=== PATIENT | female | born 1985 | race Caucasian/White ===

== ENCOUNTER 2016-09-03 05:29 | Day surgery (SDC) | payer OTHER ==
[2016-08-27 10:12] LABS: ABSOLUTE EOSINOPHILS # (AUTO) 0.1 10^3/uL (0.0-0.6); ABSOLUTE LYMPHOCYTES (AUTO) 1.8 10^3/uL (0.5-4.7); ABSOLUTE MONOCYTES (AUTO) 0.4 10^3/uL (0.1-1.4); ABSOLUTE NEUT (AUTO) 5.4 10^3/uL (1.7-8.2); BASOPHILS % (AUTO) 0.4 % (0-2); EOSINOPHILS % (AUTO) 1.6 % (0-6); HEMATOCRIT 45.7 % (36.0-47.0); HEMOGLOBIN 15.2 g/dL (12.0-15.5); HGB HCT DIFFERENCE -0.1; LYMPHOCYTES % (AUTO) 23.6 % (13-45); MEAN CORPUSCULAR HEMOGLOBIN 30.8 pg (27.0-33.4); MEAN CORPUSCULAR HGB CONC 33.3 g/dL (32.0-36.0); MEAN CORPUSCULAR VOLUME 92 fl (80-97); MONOCYTES % (AUTO) 5.1 % (3-13); RED BLOOD COUNT 4.95 10^6/uL (3.72-5.28); SEGMENTED NEUTROPHILS % (AUTO) 69.3 % (42-78); WHITE BLOOD COUNT 7.8 10^3/uL (4.0-10.5)
[2016-08-27 10:22] LABS: AMORPHOUS SEDIMENT,URINE TRACE /HPF; APPEARANCE,URINE CLOUDY; BILIRUBIN,URINE NEGATIVE (NEGATIVE); GLUCOSE, URINE NEGATIVE (NEGATIVE); KETONES,URINE NEGATIVE (NEGATIVE); LEUKOCYTE ESTERASE,URINE TRACE (NEGATIVE); NITRITE,URINE NEGATIVE (NEGATIVE); PROTEIN,URINE NEGATIVE (NEGATIVE); URINE SPECIFIC GRAVITY 1.017; UROBILINOGEN,URINE NEGATIVE mg/dL (<2.0)
[2016-08-27 10:39] LABS: ANION GAP 17 (5-19); BLOOD UREA NITROGEN 15 mg/dL (7-20); CARBON DIOXIDE 24 mmol/L (22-30); CHLORIDE 104 mmol/L (98-107); CREATININE RESULT 0.53 mg/dL (0.52-1.25); GLUCOSE 70 mg/dL (75-110); POTASSIUM 3.9 mmol/L (3.6-5.0); SODIUM 144.9 mmol/L (137-145)
--- NOTE | 2016-08-27 19:53 | EKG REPORT ---
SEVERITY:- NORMAL ECG - SINUS RHYTHM : Confirmed by: Wallace Juarez MD 27-Aug-2016 19:52:38
[~2016-09-03 05:29] MED LIST: LACTATED RINGERS 1000 ML IV PRN; LIDOCAINE 0.5% INJ-PF (5 MG/ML) 50 ML SDV SUBCUT PRN; VANCOMYCIN HCL 1,000 MG in DEXTROSE 5%-WATER 250 ML IV PRN
[2016-09-03] MEDS ORDERED: BUPIVACAINE HCL 0.25 % INJ/PF (2.5 MG/1 ML) 30 ML VIAL ONE (06:35)
[2016-09-03] MEDS ORDERED: EPINEPHRINE INJ/PF 1 MG/1 ML AMPULE ONE (06:35)
[2016-09-03] MEDS ORDERED: MIDAZOLAM 2 MG/2 ML INJ ONE (06:50)
[2016-09-03] MEDS ORDERED: KETOROLAC TROMETHAMINE 60 MG/2 ML SDV ONE (06:50)
[2016-09-03] MEDS ORDERED: FENTANYL CITRATE INJ/PF 250 MCG/5 ML AMPULE ONE (06:50)
[2016-09-03] MEDS ORDERED: ONDANSETRON HCL INJ/PF 4 MG/2 ML SDV ONE (06:50)
[2016-09-03] MEDS ORDERED: HYDROMORPHONE HCL INJ/PF 2 MG/ML AMPULE ONE ×2 (06:50→13:39)
[2016-09-03] MEDS ORDERED: PROPOFOL INJ 200 MG/20 ML VIAL IV ONE (06:51)
[2016-09-03] MEDS ORDERED: ACETAMINOPHEN 100 ML IV ONE (06:51)
[2016-09-03] MEDS ORDERED: PROMETHAZINE HCL INJ 25 MG/1 ML VIAL IV PRN (09:44)
[2016-09-03] MEDS ORDERED: MORPHINE SULFATE 10 MG/ML INJ IV PRN (09:44)
[2016-09-03] MEDS ORDERED: FENTANYL CITRATE INJ/PF 100 MCG/2 ML AMPUL IV PRN ×3 (09:44)
[2016-09-03] MEDS ORDERED: DIPHENHYDRAMINE HCL 50 MG/ML VIAL IV PRN (09:44)
[2016-09-03] MEDS ORDERED: MEPERIDINE HCL/PF INJ 25 MG/1 ML DISP.SYRIN IV PRN (09:44)
[2016-09-03] MEDS ORDERED: OXYCODONE-ACETAMINOPHEN 5-325 MG TABLET PO PRN ×2 (12:05)
--- NOTE | 2016-09-03 12:05 | PDOC DISCHARGE SUMMARY ---
Discharge Summary (SDC) - Discharge Final Diagnosis: Right shoulder instability Date of Surgery: 09/03/16 Discharge Date: 09/03/16 Condition: Good Treatment or Instructions: Patient is instructed to follow up in 10-14 days. Patient instructed to remove dressing in 4 days then can shower and apply Band- Aids as needed. Patient to wear sling for comfort but okay to remove for shower and pendulum exercises. Pendulum exercises are instructed to be done 3 times a day ideally with breakfast, lunch, dinners and showers. Patient instructed to call if there is any signs of redness or drainage fevers or chills. Discharge Diet: As Tolerated Respiratory Treatments at Home: Deep Breathing/Coughing Discharge Activity: No Lifting/Push/Pulling, Walk Frequently Home Care Assistance: None Needed Report the Following to Your Physician Immediately: Shortness of Breath, Vomiting, Increase in Pain, Fever over 101 Degrees, Unusual Bleeding, Redness, Warmth, Drainage-Yellow, Drainage-Green, Drainage-Foul Smelling, Numbness
[2016-09-03] MEDS: FENTANYL CITRATE INJ/PF 100 MCG/2 ML AMPUL ONE ×2 (12:13→12:27)
[2016-09-03] MEDS ORDERED: HYDROMORPHONE HCL INJ/PF 2 MG/ML AMPULE IV ONE (13:45)
[2016-09-03] MEDS ORDERED: ROCURONIUM BROMIDE INJ 50 MG/5 ML VIAL IV ONE (14:13)
[2016-09-03 15:46] VITALS: BP 107/58
--- NOTE | 2016-10-14 15:22 | OPERATIVE REPORT E ---
Operative Report NAME: DEMETRIS ROME : 1985 AGE: 30Y DATE OF SURGERY: ROOM: Patient is a 31-year-old female with 3 failed shoulder surgeries for instability; recent dislocations last several weeks. Discussed the risks and benefits of proceeding with a Latarjet procedure. Patient understood and agreed. PREOPERATIVE DIAGNOSIS: RIGHT SHOULDER INSTABILITY. POSTOPERATIVE DIAGNOSIS: RIGHT SHOULDER INSTABILITY. OPERATION: 1. Right shoulder arthroscopy. 2. Open Latarjet procedure. SURGEON: SAGE VÁZQUEZ M.D. ANESTHESIA: General. ESTIMATED BLOOD LOSS: 50 mL. COMPLICATIONS: None. IMPLANT USED: Two titanium screws by [employer]. DISPOSITION: Stable to PACU. DESCRIPTION OF PROCEDURE: The patient was brought to the operating room after receiving preoperative antibiotics. She was placed in a supine position where she was successfully intubated. She was then secured in a beach-chair position. We prepped and draped the right shoulder in a normal sterile surgical fashion. Time out was done identifying the right shoulder as the correct site. We used her previous portal sites and introduced the scope posteriorly. I established through same anterior portal sites she had and proceeded to place a cannula. Did arthroscopy showing flattening of her labrum and previous fixation. She had no bumper effect. There was a redundant capsule. At this point, we just did a simple debridement with a 4.0 mm shaver. At this point, we then removed the fluid from the shoulder and proceeded to do the open portion of the case. Deltopectoral approach was done to the shoulder. A #10 blade was used for the skin. Dissection was done with Metzenbaum scissors. The conjoint tendon was visualized and retracted with a self-containing retractor. I identified the coracoid and used an osteotome and place it under the coracoid. I then used a 90-degree 10mm saw to cut my coracoid 2 cm long. Released the tissue and then used Arthrex equipment guide to then place 2 drill holes into the coracoid. I exposed the anterior glenohumeral joint and released the capsule to apply the coracoid fragment. Was able to visualize the axillary nerve inferiorly. Placed retractors. Use direct equipment to guide placement of the coracoid with the glenoid face and drilled through this and placed the pins in the previous drill holes and then drilled through the glenoid and matched the position. I proceeded to measure and then placed the appropriate screws. I did ask for C-arm to get x-rays to confirm the length and fixation of my coracoid fragment. I did readjust the coracoid fragment more superiorly. I felt they were too inferior and after readjusting and measuring of placement of screws, I re-x-rayed it with the C-arm and was satisfied with the new location. At this point then, I tried to move the piece and I felt that it was pretty secure. Of note, I did rasp the glenoid neck and the actual coracoid fragment that was close to the glenoid, to allow for bleeding and bony union. Once I was satisfied with the procedure, irrigation was used. I used #1 Vicryl to close the deltopectoral interval. I was able to use 2-0 Vicryl for the dermis and then osmany to the skin. At this point, the incision was closed with Xeroform, 4 x 4 dressing, and Medipore tape. Patient was placed in a rigid shoulder immobilizer. Drapes were removed and the patient was placed in a supine position where she was extubated and sent to PACU in a stable condition. DICTATING PHYSICIAN: Nora BENNETT [id number] DAYNAY#: [id number] ID: [id number] JOB#: [id number] ACCT: [id number] cc:SAGE VÁZQUEZ M.D. > MTDD
== END 2016-09-03 14:50 | disposition home or self-care (01) ==
LOC: OROUT 05:29
PROVIDERS: ATTEND Orthopaedic Surgery
PROC: 0RQJ4ZZ Repair Right Shoulder Joint, Percutaneous Endoscopic Approach (ICD-10-PCS; principal; 2016-09-03 07:30)
DX: M25.311 Other instability, right shoulder (principal); M25.511 Pain in right shoulder; F17.210 Nicotine dependence, cigarettes, uncomplicated; Z88.1 Allergy status to other antibiotic agents; Z79.1 Long term (current) use of non-steroidal anti-inflammatories (NSAID)
CPT/HCPCS: 29805; 23462; 93005; 36415; 85025; 81025; 80048; 81001; 71020; 73030; 93010; J2250; J3490; J0171; J1885; J3010 ×2; J1170; J2405; J7060; J2704; J3370; J0131; 01630

== ENCOUNTER 2016-11-03 08:15 | Day surgery (SDC) | payer OTHER ==
[~2016-11-03 08:15] MED LIST changes: +EPINEPHRINE INJ 1 MG/10 ML DISP.SYRIN ONE; +FLUMAZENIL INJ 0.5 MG/5 ML VIAL IV ONE; +GLYCOPYRROLATE INJ 0.4 MG/2 ML VIAL ONE; -LACTATED RINGERS 1000 ML IV PRN; -LIDOCAINE 0.5% INJ-PF (5 MG/ML) 50 ML SDV SUBCUT PRN; +NALOXONE HCL INJ/PF 0.4 MG/1 ML SDV ONE; +ONDANSETRON HCL INJ/PF 4 MG/2 ML SDV ONE; -VANCOMYCIN HCL 1,000 MG in DEXTROSE 5%-WATER 250 ML IV PRN
[2016-11-03] MEDS: MIDAZOLAM 2 MG/2 ML INJ ONE ×2 (08:52→08:58)
[2016-11-03] MEDS: FENTANYL CITRATE INJ/PF 100 MCG/2 ML AMPUL ONE ×2 (08:54→09:00)
--- NOTE | 2016-11-03 09:08 | HISTORY AND PHYSICAL E ---
History and Physical NAME: DEMETRIS ROME : 1985 AGE: 31Y ADMITTED: 11/03/2016 ROOM: New patient, a 31-year-old female with reflux and dysphagia, right upper quadrant abdominal pain. CHIEF COMPLAINT: Dysphagia, reflux, abdominal pain. SOCIAL HISTORY: . She smokes occasional cigarettes. She does not drink but socially. PAST SURGICAL HISTORY: 1. Right shoulder surgery. 2. Hip surgery, right. REVIEW OF SYSTEMS: CARDIAC: Negative. ENDOCRINE: Negative. GASTROINTESTINAL: Reflux, abdominal pain. NEUROPSYCHIATRIC: Anxiety. FAMILY HISTORY: Father is alive. Mother is alive, has gallbladder disease. PHYSICAL EXAMINATION: GENERAL: 30. VITAL SIGNS: Blood pressure is 110/60, pulse 80, respirations 18, temp is 98. HEAD, EYES, EARS, NOSE AND THROAT: Normal. NECK: Neck is supple. CARDIOVASCULAR: Normal. LUNGS: Clear. ABDOMEN: Soft. NEUROLOGICAL: Exam negative. CONCLUSIONS: 1. Abdominal pain. 2. Dysphagia. 3. Reflex. MEDICATIONS: 1. Gabapentin. 2. Vitamins. 3. Ambien. 4. Imitrex. PLAN: Upper endoscopy, scheduled for 11/03/2016. DICTATING PHYSICIAN: MANJIT MA M.D. [id number] [id number] Y#: [id number] ID: [id number] JOB#: [id number] ACCT: [id number] cc:MANJIT MA M.D. [facility],
[2016-11-03 10:25] VITALS: BP 110/73
--- NOTE | 2016-11-03 10:36 | OPERATIVE REPORT E ---
Operative Report NAME: DEMETRIS ROME : 1985 AGE: 31Y DATE OF SURGERY: 11/03/2016 ROOM: PREOPERATIVE DIAGNOSES: 1. Reflux. 2. Abdominal pain. POSTOPERATIVE DIAGNOSES: 1. Esophagitis, mild. 2. Gastritis, mild. 3. Duodenitis, mild. PROCEDURE: Esophagoscopy, gastroscopy, duodenoscopy. SURGEON: MANJIT MA M.D. ANESTHESIA: Versed 3 mg and Fentanyl 100 mcg. TISSUE REMOVED OR ALTERED: Gastric biopsy for H. pylori. PROCEDURE: The baby scope passed under guided vision, no difficulties. Esophagoscopy: Junction at 35, mild esophagitis. No hernias, no ulcers, no stricture. Gastroscopy: Mild gastritis. No ulcers. Biopsy obtained for H. pylori. Duodenoscopy: No evidence of ulcers. Mild duodenitis. Upper scope showing no ulcer, no malignancy, no hernias, with mild esophagitis, mild gastritis, mild duodenitis. The patient tolerated the procedure fairly well and discharged to her room in stable condition. CONCLUSIONS: 1. Esophagitis. 2. Gastritis. 3. Duodenitis. 4. No evidence of ulcers. DICTATING PHYSICIAN: MANJIT MA M.D. 1209M 1011 PHY#: [id number] ID: [id number] JOB#: [id number] ACCT: [id number] cc:[facility], MANJIT MA M.D. >
--- NOTE | 2016-11-03 10:37 | HISTORY AND PHYSICAL E ---
History and Physical NAME: DEMETRIS ROME : 1985 AGE: 31Y ADMITTED: 11/03/2016 ROOM: CHIEF COMPLAINT: Abdominal pain. HISTORY OF PRESENT ILLNESS: A 31-year-old female presented with abdominal pain. REVIEW OF SYSTEMS: HEAD, EYES, EARS, NOSE, THROAT: Migraine. CARDIAC: Negative. ABDOMEN: Nonspecific abdominal pain. Reflux. NEUROLOGIC: Migraine. MUSCULOSKELETAL: The patient does have history of sharp pain, right shoulder symptoms. GASTROINTESTINAL: Reflux. GENITOURINARY: Her last menstrual, 10/05/2016. PHYSICAL EXAMINATION: VITAL SIGNS: Blood pressure is 110/80, pulse 80, respirations 20, temp is 98. HEAD, EYES, EARS, NOSE, AND THROAT: Normal. NECK: Supple. LUNGS: Clear. ABDOMEN: Soft. NEUROLOGIC: Negative. CONCLUSION: 1. Abdominal pain. 2. Gastroesophageal reflux. 3. Arthritis right shoulder. PLAN: Awaiting biopsy results. Lab studies. Patient takes ibuprofen. We need to start her on PPI. DICTATING PHYSICIAN: MANJIT MA M.D. 1211M 1001 [facility]#: [id number] ID: [id number] JOB#: [id number] ACCT: [id number] cc:[facility], MANJIT MA M.D. >
[2016-11-03 10:42] LABS: ABSOLUTE EOSINOPHILS # (AUTO) 0.1 10^3/uL (0.0-0.6); ABSOLUTE LYMPHOCYTES (AUTO) 1.8 10^3/uL (0.5-4.7); ABSOLUTE MONOCYTES (AUTO) 0.3 10^3/uL (0.1-1.4); ABSOLUTE NEUT (AUTO) 3.2 10^3/uL (1.7-8.2); BASOPHILS % (AUTO) 0.6 % (0-2); EOSINOPHILS % (AUTO) 2.4 % (0-6); HEMOGLOBIN 13.2 g/dL (12.0-15.5); HGB HCT DIFFERENCE -1.4; MEAN CORPUSCULAR HGB CONC 32.3 g/dL (32.0-36.0); MEAN CORPUSCULAR VOLUME 93 fl (80-97); MONOCYTES % (AUTO) 4.8 % (3-13); RED BLOOD COUNT 4.41 10^6/uL (3.72-5.28); RED CELL DISTRIBUTION WIDTH 13.4 % (11.5-14.0); SEGMENTED NEUTROPHILS % (AUTO) 59.2 % (42-78); WHITE BLOOD COUNT 5.4 10^3/uL (4.0-10.5)
[2016-11-03 10:59] LABS: ALANINE AMINOTRANSFERASE 34 U/L (9-52); ALBUMIN 3.8 g/dL (3.5-5.0); ALKALINE PHOSPHATASE 58 U/L (38-126); AMYLASE 59 U/L (30-110); ANION GAP 9 (5-19); ASPARTATE AMINO TRANSFERASE 21 U/L (14-36); BILIRUBIN,DIRECT 0.3 mg/dL (0.0-0.4); BILIRUBIN,TOTAL 0.5 mg/dL (0.2-1.3); BLOOD UREA NITROGEN 11 mg/dL (7-20); CALCIUM 8.7 mg/dL (8.4-10.2); CARBON DIOXIDE 25 mmol/L (22-30); CHLORIDE 107 mmol/L (98-107); CREATININE RESULT 0.56 mg/dL (0.52-1.25); GLUCOSE 95 mg/dL (75-110); POTASSIUM 3.9 mmol/L (3.6-5.0); SODIUM 141.3 mmol/L (137-145); TOTAL PROTEIN 6.6 g/dL (6.3-8.2)
--- NOTE | 2016-11-03 17:25 | DISCHARGE SUMMARY E ---
Discharge Summary NAME: DEMETRIS ROME : 1985 AGE: 31Y ADMITTED: 11/03/2016 DISCHARGED: 11/03/2016 HISTORY: A 31-year-old female with reflux and abdominal pain. Upper endoscopy shows no ulcers. Patient tolerated the procedure well. She is known to have migraines. She takes Ambien, gabapentin, Imitrex, and Zyrtec. Patient does have history of right shoulder arthritis. PLAN: Continue present management. Patient to see us in the office in the next few days. Again upper scope, no ulcers and no malignancy. Awaiting biopsy results. We will obtain baseline lab studies to include liver function and CBC. Patient to see us in the office in the next few days. DICTATING PHYSICIAN: MANJIT MA M.D. 1211M [id number] PHY#: [id number] ID: [id number] JOB#: [id number] ACCT: [id number] cc:MANJIT MA M.D. >
== END 2016-11-03 10:23 | disposition home or self-care (01) ==
LOC: END 08:15
PROVIDERS: ATTEND Specialist
PROC: 0DB68ZX Excision of Stomach, Via Natural or Artificial Opening Endoscopic, Diagnostic (ICD-10-PCS; principal; 2016-11-03 09:00)
DX: K21.0 Gastro-esophageal reflux disease with esophagitis (principal); K29.50 Unspecified chronic gastritis without bleeding; K29.80 Duodenitis without bleeding; G43.909 Migraine, unspecified, not intractable, without status migrainosus; M19.011 Primary osteoarthritis, right shoulder; F41.9 Anxiety disorder, unspecified; F17.210 Nicotine dependence, cigarettes, uncomplicated; Z79.899 Other long term (current) drug therapy
CPT/HCPCS: 43239; 36415; 82150; 83690; 85025; 80053; 88342 ×2; 88305 ×2; J2250; J3010; J2405; J0171; J2310; J3490

== ENCOUNTER 2016-12-19 12:52 | Emergency (ER) | payer OTHER ==
[2016-12-19] MEDS ORDERED: PROMETHAZINE HCL 25 MG TABLET PO ONE (13:00)
[2016-12-19] MEDS ORDERED: OXYCODONE-ACETAMINOPHEN 5-325 MG TABLET PO ONE (13:00)
--- NOTE | 2016-12-19 13:04 | ER Document Report ---
ED Medical Screen (RME) - General Chief Complaint: Shoulder Injury Stated Complaint: RIGHT SHOULDER Time Seen by Provider: 12/19/16 12:59 Notes: Patient slipped on a carpet and fell to the wooden floor striking her right arm just prior to arrival here today. Complaining of pain primarily at the right shoulder where she recently had her fourth surgery for recurrent dislocations and pain in the right elbow, just past the olecranon. Denies other injuries although she does have some neck symptoms. Denies any neurologic deficits. Denies any rib injury or difficulty breathing. Denies any abdominal pain. TRAVEL OUTSIDE OF THE [place] IN LAST 30 DAYS: No - Related Data Allergies/Adverse Reactions: cefaclor [From Ceclor] Allergy (Mild, Verified 08/27/16 08:40) Generalized rash Past Medical History - Past Medical History Cardiac Medical History: Denies: Hx Coronary Artery Disease, Hx Heart Attack, Hx Hypertension Pulmonary Medical History: Reports: Hx Asthma - LAST ASTHMA ATTACK ABOUT 5 YEARS AGO Denies: Hx Bronchitis, Hx COPD, Hx Pneumonia Neurological Medical History: Denies: Hx Cerebrovascular Accident, Hx Seizures Musculoskeltal Medical History: Denies Hx Arthritis Past Surgical History: Denies: Hx Hysterectomy - Immunizations Hx Diphtheria, Pertussis, Tetanus Vaccination: Yes
--- NOTE | 2016-12-19 13:58 | ER Document Report ---
ED General - General Chief Complaint: Shoulder Injury Stated Complaint: RIGHT SHOULDER Time Seen by Provider: 12/19/16 12:59 Mode of Arrival: Ambulatory Information source: Patient Notes: 31-year-old female history of multiple shoulder dislocations for previous surgeries presents with complaints of pain with range of motion. Patient notes she fell and felt a popping sensation and has been unable to lift her arm. Patient had surgery performed in August TRAVEL OUTSIDE OF THE [place] IN LAST 30 DAYS: No - HPI Onset: Just prior to arrival Onset/Duration: Sudden Quality of pain: Achy Severity: Mild Pain Level: 1 Associated symptoms: Body/muscle aches Exacerbated by: Movement Relieved by: Denies Similar symptoms previously: Yes Recently seen / treated by doctor: Yes - Related Data Allergies/Adverse Reactions: cefaclor [From Ceclor] Allergy (Mild, Verified 08/27/16 08:40) Generalized rash Past Medical History - Social History Smoking Status: Current Every Day Smoker Cigarette use (# per day): Yes Chew tobacco use (# tins/day): No Smoking Education Provided: No Frequency of alcohol use: Social Drug Abuse: None Family History: Reviewed & Not Pertinent Patient has suicidal ideation: No Patient has homicidal ideation: No - Past Medical History Cardiac Medical History: Denies: Hx Coronary Artery Disease, Hx Heart Attack, Hx Hypertension Pulmonary Medical History: Reports: Hx Asthma - LAST ASTHMA ATTACK ABOUT 5 YEARS AGO Denies: Hx Bronchitis, Hx COPD, Hx Pneumonia Neurological Medical History: Denies: Hx Cerebrovascular Accident, Hx Seizures Renal/ Medical History: Denies: Hx Peritoneal Dialysis Musculoskeltal Medical History: Denies Hx Arthritis Past Surgical History: Denies: Hx Hysterectomy - Immunizations Hx Diphtheria, Pertussis, Tetanus Vaccination: Yes Review of Systems - Review of Systems Notes: REVIEW OF SYSTEMS: CONSTITUTIONAL : Denies fever, chills, or sweats. Denies recent illness. EENT: Denies eye, ear, throat, or mouth pain or symptoms. Denies nasal or sinus congestion or discharge. Denies throat, tongue, or mouth swelling or difficulty swallowing. CARDIOVASCULAR: Denies chest pain. Denies palpitations or racing or irregular heart beat. Denies ankle edema. RESPIRATORY: Denies cough, cold, or chest congestion. Denies shortness of breath, difficulty breathing, or wheezing. GASTROINTESTINAL: Denies abdominal pain or distention. Denies nausea, vomiting , or diarrhea. Denies blood in vomitus, stools, or per rectum. Denies black, tarry stools. Denies constipation. GENITOURINARY: Denies difficulty urinating, painful urination, burning, frequency, blood in urine, or discharge. FEMALE GENITOURINARY: Denies vaginal bleeding, heavy or abnormal periods, irregular periods. Denies vaginal discharge or odor. MUSCULOSKELETAL: Admits to right shoulder pain SKIN: Denies rash, lesions or sores. HEMATOLOGIC : Denies easy bruising or bleeding. LYMPHATIC: Denies swollen, enlarged glands. NEUROLOGICAL: Denies confusion or altered mental status. Denies passing out or loss of consciousness. Denies dizziness or lightheadedness. Denies headache. Denies weakness or paralysis or loss of use of either side. Denies problems with gait or speech. Denies sensory loss, numbness, or tingling. Denies seizures. PSYCHIATRIC: Denies anxiety or stress. Denies depression, suicidal ideation, or homicidal ideation. ALL OTHER SYSTEMS REVIEWED AND NEGATIVE. PHYSICAL EXAMINATION: GENERAL: Well-appearing, well-nourished and in no acute distress. HEAD: Atraumatic, normocephalic. EYES: Pupils equal round and reactive to light, extraocular movements intact, conjunctiva are normal. ENT: Nares patent, oropharynx clear without exudates. Moist mucous membranes. NECK: Normal range of motion, supple without lymphadenopathy LUNGS: Breath sounds clear to auscultation bilaterally and equal. No wheezes rales or rhonchi. HEART: Regular rate and rhythm without murmurs ABDOMEN: Soft, nontender, nondistended abdomen. No guarding, no rebound. No masses appreciated. Female : deferred Musculoskeletal: Limited range of motion of the right shoulder secondary to pain NEUROLOGICAL: Cranial nerves grossly intact. Normal speech, normal gait. Normal sensory, motor exams PSYCH: Normal mood, normal affect. SKIN: Multiple surgical scars noted right shoulder Dictation was performed using [employer] voice recognition software Physical Exam - Vital signs Vitals: Temp Pulse Resp BP Pulse Ox 97.8 F 98 18 129/85 H 98 12/19/16 12:58 12/19/16 12:58 12/19/16 12:58 12/19/16 12:58 12/19/16 12:58 Course - Re-evaluation Re-evalutation: 12/19/16 14:41 X-ray notes no fracture, no dislocation. Given the patient continues to have limited range of motion I spoke with the radiologist reviewed the image and we will perform another x-ray 12/19/16 15:35 Transaxillary view notes no abnormality either. Patient will be given follow- up with orthopedics and otherwise stable for discharge patient encouraged for close follow-up After performing a Medical Screening Examination, I estimate there is LOW risk for INTRACRANIAL HEMORRHAGE, UNSTABLE SPINE FRACTURE, CENTRAL CORD SYNDROME, CAUDA EQUINA, THORACIC AORTIC DISSECTION, PNEUMOTHORAX, PERFORATED BOWEL, RUPTURED ABDOMINAL AORTIC ANEURYSM, ACUTE TENDON RUPTURE, COMPARTMENT SYNDROME, or OPEN FRACTURE, thus I consider the discharge disposition reasonable. Also, there is no evidence or peritonitis, sepsis, or toxicity. I have reevaluated this patient multiple times and no significant life threatening changes are noted. The patient and I have discussed the diagnosis and risks, and we agree with discharging home to follow-up with their primary doctor with the understanding that symptoms and presentations can change. We also discussed returning to the Emergency Department immediately if new or worsening symptoms occur. We have discussed the symptoms which are most concerning (e.g., bloody stool, fever, changing or worsening pain, vomiting) that necessitate immediate return. - Vital Signs Vital signs: Temp Pulse Resp BP Pulse Ox 97.8 F 98 18 129/85 H 98 12/19/16 12:58 12/19/16 12:58 12/19/16 12:58 12/19/16 12:58 12/19/16 12:58 - Diagnostic Test Radiology reviewed: Image reviewed, Reports reviewed - no fracture or dislocation Discharge - Discharge Clinical Impression: Shoulder injury Qualifiers: Encounter type: initial encounter Laterality: right Qualified Code(s): S49.91XA - Unspecified injury of right shoulder and upper arm, initial encounter Condition: Stable Disposition: HOME, SELF-CARE Instructions: Sling as Treatment ([facility]) Referrals: SAGE WATT MD [ACTIVE STAFF] - Follow up tomorrow
--- NOTE | 2016-12-19 14:20 | RADIOLOGY REPORT (SQ) ---
EXAM DESCRIPTION: SHOULDER RIGHT 2 OR MORE VIEWS COMPLETED DATE/TIME: 12/19/2016 1:47 pm REASON FOR STUDY: fell on right arm, Hx shoulder surgery x 4 COMPARISON: Fluoroscopic orthopedic C-arm images 09/03/2016 NUMBER OF VIEWS: Three views. TECHNIQUE: Internal rotation, external rotation, and Y view images acquired of the right shoulder. LIMITATIONS: Motion artifact on the Y-view FINDINGS: MINERALIZATION: Normal. BONES: No acute fracture or dislocation. No worrisome bone lesions. JOINTS: No glenohumeral dislocation. No acromioclavicular joint widening. VISUALIZED LUNGS AND RIBS: No pneumothorax. No rib fracture. SOFT TISSUES: Screws in the anterior bony glenoid. OTHER: No other significant finding. IMPRESSION: No acute changes TECHNICAL DOCUMENTATION: JOB ID: [id number] [employer]- All Rights Reserved
--- NOTE | 2016-12-19 14:21 | RADIOLOGY REPORT (SQ) ---
EXAM DESCRIPTION: ELBOW RIGHT OVER 2 VIEWS COMPLETED DATE/TIME: 12/19/2016 1:47 pm REASON FOR STUDY: Fell on right arm. Pain in the elbow COMPARISON: None. NUMBER OF VIEWS: Four views. TECHNIQUE: AP, lateral, and both oblique radiographic images acquired of the right elbow. LIMITATIONS: Nonstandard radiographic positioning on the oblique views. FINDINGS: MINERALIZATION: Normal. BONES: No acute fracture or dislocation. No worrisome bone lesions. JOINT: No effusion. SOFT TISSUES: No soft tissue swelling. No foreign body. OTHER: No other significant finding. IMPRESSION: Limited negative study TECHNICAL DOCUMENTATION: JOB ID: [id number] [employer]- All Rights Reserved
--- NOTE | 2016-12-19 15:38 | RADIOLOGY REPORT (SQ) ---
EXAM DESCRIPTION: SHOULDER RIGHT 1 VIEW COMPLETED DATE/TIME: 12/19/2016 3:30 pm REASON FOR STUDY: transaxillary view COMPARISON: None. NUMBER OF VIEWS: Trans axillary and Y-view TECHNIQUE: Trans axillary and Y-view images acquired of the right shoulder. LIMITATIONS: None. FINDINGS: The trans axillary and Y-views demonstrate no glenohumeral dislocation. There are screws along the anterior lower half of the bony glenoid without lucency worrisome for loosening or infectio n. Limited view of the ribs scapula and clavicle are intact. IMPRESSION: No plain film evidence of right shoulder dislocation TECHNICAL DOCUMENTATION: JOB ID: [id number] [employer]- All Rights Reserved
[2016-12-19 16:50] VITALS: BP 109/70
== END 2016-12-19 16:53 | disposition home or self-care (01) ==
LOC: ER 12:52
DX: S49.91XA Unspecified injury of right shoulder and upper arm, initial encounter (principal); W19.XXXA Unspecified fall, initial encounter; Z98.890 Other specified postprocedural states; F17.210 Nicotine dependence, cigarettes, uncomplicated
CPT/HCPCS: 99283

== ENCOUNTER → 2017-02-04 | Day surgery (SDC) | payer OTHER ==
[~2017-02-04] MED LIST changes: -EPINEPHRINE INJ 1 MG/10 ML DISP.SYRIN ONE; -FLUMAZENIL INJ 0.5 MG/5 ML VIAL IV ONE; -GLYCOPYRROLATE INJ 0.4 MG/2 ML VIAL ONE; +LIDOCAINE 1% INJ-PF (10 MG/ML) 30 ML SDV ONE; -NALOXONE HCL INJ/PF 0.4 MG/1 ML SDV ONE; -ONDANSETRON HCL INJ/PF 4 MG/2 ML SDV ONE
--- NOTE | 2017-02-04 15:20 | RADIOLOGY REPORT (SQ) ---
EXAM DESCRIPTION: ARTHRO HIP INJ W/ANESTHESIA; FLUORO/NEEDLE PLACEMENT COMPLETED DATE/TIME: 02/04/2017 1:55 pm REASON FOR STUDY: PAIN IN LEFT HIP M25.552 PAIN IN LEFT HIP COMPARISON: None. FLUOROSCOPY TIME: 25 seconds 2 digital left hip images saved to PACS. LIMITATIONS: None. PROCEDURE: Procedure, risks, benefits and alternatives explained to patient who then gave written c onsent. The left hip was marked and a time-out was called for correct marking verification. Entry site marked using fluoroscopic guidance. Hip prepped and draped using sterile technique. Local ane sthesia achieved using 5 mL of 1% lidocaine injection. 22 gauge spinal needle introduced into the alicja int space under direct fluoroscopic visualization. Non-ionic contrast instilled to confirm intra-art icular position. Dilute gadolinium solution then injected. Needle removed and entry site covered w ith sterile bandage. No immediate complications noted. TECHNIQUE: Digital images acquired during fluoroscopy and stored on PACS. Patient immediately take n to the MR suite for additional imaging. INJECTION LOCATION: Left hip CONTRAST TYPE AND AMOUNT: 1 mL of Isovue-300 injected to confirm intra-articular needle placement, fo llowed by 7 mL of dilute ProHance gadolinium for MR arthrogram IMPRESSION: SUCCESSFUL NEEDLE PLACEMENT AND INJECTION FOR LEFT HIP MR ARTHROGRAM. COMMENT: Quality ID [id number]: Final reports for procedures using fluoroscopy that document radiation exp osure indices, or exposure time and number of fluorographic images (if radiation exposure indices are not available) TECHNICAL DOCUMENTATION: JOB ID: [id number] [employer]- All Rights Reserved
--- NOTE | 2017-02-04 15:30 | RADIOLOGY REPORT (SQ) ---
EXAM DESCRIPTION: MRI LT LOWER JOINT WITH COMPLETED DATE/TIME: 02/04/2017 2:13 pm REASON FOR STUDY: PAIN IN LEFT HIP M25.552 PAIN IN LEFT HIP COMPARISON: Arthrogram same date TECHNIQUE: Lefthip images acquired and stored on PACS. Multiplanar images to include fat sensitive s equences as T1, fluid sensitive sequences as T2/STIR and gradient echo sequences. Large FOV fat and f luid sensitive sequences include pelvis and opposite hip. LIMITATIONS: None. FINDINGS: BONE CORTEX AND MARROW: No generalized marrow replacement. No occult fracture. No worriso me bone lesions. LEFT HIP: Adequate joint distention. No left hip loose bodies. FEMORAL HEAD: No occult fracture. No osteophytes or subchondral cysts. Normal sphericity of femoral h ead/neck junction. No acetabular dysplasia. No evidence femoroacetabular impingement. ACETABULUM: No acetabular dysplasia. No subchondral cysts. LABRUM: There is a small superior labral tear evident on series 6 coronal images 12-15. There is als o a small tear along the inferior labrum best shown on coronal image 14 and sagittal image 12. No pa ralabral cysts. TROCHANTER: Trace trochanteric bursal effusion. Mild edema/fluid at the insertions of the gluteus me dius and gluteus minimus. RIGHT HIP: Limited evaluation. No worrisome bone lesions. No significant effusion. PELVIS, LOWER LUMBAR SPINE, SACROILIAC JOINTS: PELVIS : No insufficiency/stress fractures. No significant degenerative changes. Sacroiliac joints normal. L SPINE: No significant osteophytes or degenerative changes of the visualized lumbar spine. MUSCLES AND SOFT TISSUES: Adductors and piriformis normal. Abductors and greater trochanteric bursa n ormal without edema or fluid. Iliopsoas bursa without fluid. Hamstring attachments without edema or t ear. PELVIC SOFT TISSUES: No masses or adenopathy. SCIATIC NERVE: Identified, without masses or abnormal signal. OTHER: No other significant finding. IMPRESSION: Left hip mild trochanteric bursitis. Small superior and inferior left acetabular labral tears without paralabral cyst. TECHNICAL DOCUMENTATION: JOB ID: [id number] [employer]- All Rights Reserved
== END ==
LOC: RAD 12:30 → EDSTATUS 13:00
PROVIDERS: ATTEND Nuclear Medicine
PROC: BQ01ZZZ Plain Radiography of Left Hip (ICD-10-PCS; principal; 2017-02-04)
DX: M70.62 Trochanteric bursitis, left hip (principal); M25.552 Pain in left hip
CPT/HCPCS: 73722; 77002; 27095; A9576; J3490

== ENCOUNTER 2017-03-14 18:35 | Emergency (ER) | payer OTHER ==
[2017-03-14] MEDS ORDERED: NORMAL SALINE 1000 ML 1,000 ML IV PRN (18:51)
[2017-03-14] MEDS ORDERED: KETOROLAC TROMETHAMINE INJ/PF 30 MG/1 ML SDV IV ONE ×2 (18:51→19:01)
[2017-03-14] MEDS ORDERED: ONDANSETRON HCL INJ/PF 4 MG/2 ML SDV IV ONE (18:52)
--- NOTE | 2017-03-14 18:52 | ER Document Report ---
ED Medical Screen (RME) - General Chief Complaint: Headache Stated Complaint: MIGRAINES Time Seen by Provider: 03/14/17 18:46 Mode of Arrival: Wheelchair Information source: Patient TRAVEL OUTSIDE OF THE U[place] IN LAST 30 DAYS: No - HPI Patient complains to provider of: Migraine headache Notes: 03/14/17 18:51 Patient is a 31-year-old female with a history of migraine headaches presenting to the emergency room today complaining of a migraine since 4:00 this morning, with photophobia and phonophobia as well as nausea, she took an Imitrex injection at home with no relief, she recently had a labral repair of the left hip 3 days ago - Related Data Allergies/Adverse Reactions: cefaclor [From Ceclor] Allergy (Mild, Verified 08/27/16 08:40) Generalized rash Past Medical History - Past Medical History Cardiac Medical History: Denies: Hx Coronary Artery Disease, Hx Heart Attack, Hx Hypertension Pulmonary Medical History: Reports: Hx Asthma - LAST ASTHMA ATTACK ABOUT 5 YEARS AGO Denies: Hx Bronchitis, Hx COPD, Hx Pneumonia Neurological Medical History: Denies: Hx Cerebrovascular Accident, Hx Seizures Renal/ Medical History: Denies: Hx Peritoneal Dialysis Musculoskeltal Medical History: Denies Hx Arthritis Past Surgical History: Denies: Hx Hysterectomy - Immunizations Hx Diphtheria, Pertussis, Tetanus Vaccination: Yes Physical Exam - Vital signs Vitals: Temp Pulse Resp BP Pulse Ox 97.5 F 93 16 125/84 100 03/14/17 18:41 03/14/17 18:41 03/14/17 18:41 03/14/17 18:41 03/14/17 18:41 Course - Vital Signs Vital signs: Temp Pulse Resp BP Pulse Ox 97.5 F 93 16 125/84 100 03/14/17 18:41 03/14/17 18:41 03/14/17 18:41 03/14/17 18:41 03/14/17 18:41
[2017-03-14] MEDS ORDERED: PROCHLORPERAZINE EDISYLATE INJ 10 MG/2 ML VIAL IV ONE (19:01)
[2017-03-14] MEDS ORDERED: DEXAMETHASONE SOD PHOS INJ 10 MG/1 ML VIAL IV ONE (19:02)
--- NOTE | 2017-03-14 19:26 | ER Document Report ---
ED General - General Chief Complaint: Headache Stated Complaint: MIGRAINES Time Seen by Provider: 03/14/17 18:46 Mode of Arrival: Wheelchair Notes: Patient is a 31-year-old female with a past history of migraine headaches who presents with 24 hours of a migraine headache. States that she woke up approximately 4 AM with this headache and that has gotten progressively worse since that time. She describes it as a severe, throbbing, bitemporal headache. She notes associated photophobia and phonophobia. She has had similar headaches in the past. She did try Imitrex at home as well as ibuprofen without any relief of the headache. Denies any head trauma. Denies any fever, constitutional symptoms, focal weakness or numbness. She has not seen a primary care doctor regarding today's concerns. TRAVEL OUTSIDE OF THE [place] IN LAST 30 DAYS: No - Related Data Allergies/Adverse Reactions: cefaclor [From Ceclor] Allergy (Mild, Verified 08/27/16 08:40) Generalized rash Past Medical History - General Information source: Patient - Social History Smoking Status: Never Smoker Frequency of alcohol use: None Drug Abuse: None Lives with: Spouse/Significant other Family History: Reviewed & Not Pertinent Patient has suicidal ideation: No Patient has homicidal ideation: No - Past Medical History Cardiac Medical History: Denies: Hx Coronary Artery Disease, Hx Heart Attack, Hx Hypertension Pulmonary Medical History: Reports: Hx Asthma - LAST ASTHMA ATTACK ABOUT 5 YEARS AGO Denies: Hx Bronchitis, Hx COPD, Hx Pneumonia Neurological Medical History: Reports: Hx Migraine. Denies: Hx Cerebrovascular Accident, Hx Seizures Renal/ Medical History: Denies: Hx Peritoneal Dialysis Musculoskeltal Medical History: Denies Hx Arthritis Past Surgical History: Denies: Hx Hysterectomy - Immunizations Hx Diphtheria, Pertussis, Tetanus Vaccination: Yes Review of Systems - Review of Systems Notes: Constitutional: Negative for fever. HENT: Negative for sore throat. Eyes: Negative for visual changes. Cardiovascular: Negative for chest pain. Respiratory: Negative for shortness of breath. Gastrointestinal: Negative for abdominal pain, vomiting or diarrhea. Genitourinary: Negative for dysuria. Musculoskeletal: Negative for back pain. Skin: Negative for rash. Neurological: Positive for headache 10 point ROS negative except as marked above and in HPI. Physical Exam - Vital signs Vitals: Temp Pulse Resp BP Pulse Ox 97.5 F 93 16 125/84 100 10/29/17 18:41 03/14/17 18:41 03/14/17 18:41 03/14/17 18:41 03/14/17 18:41 Interpretation: Normal Notes: PHYSICAL EXAMINATION: GENERAL: Well-appearing, well-nourished and in no acute distress. HEAD: Atraumatic, normocephalic. EYES: Pupils equal round and reactive to light, extraocular movements intact, sclera anicteric, conjunctiva are normal. ENT: nares patent, oropharynx clear without exudates. Moist mucous membranes. NECK: Normal range of motion, supple without lymphadenopathy LUNGS: Breath sounds clear to auscultation bilaterally and equal. No wheezes rales or rhonchi. HEART: Regular rate and rhythm without murmurs ABDOMEN: Soft, nontender, normoactive bowel sounds. No guarding, no rebound. No masses appreciated. EXTREMITIES: Normal range of motion, no pitting or edema. No cyanosis. NEUROLOGICAL: Face symmetric. Tongue protrudes midline. Extraocular motions intact. Pupils are 2 mm and equally reactive. Normal speech, normal gait. 5 out of 5 strength in both the distal and proximal upper and lower extremities bilaterally. Sensation is grossly intact throughout. Finger to nose testing normal. Pronator drift normal. PSYCH: Normal mood, normal affect. SKIN: Warm, Dry, normal turgor, no rashes or lesions noted. Course - Re-evaluation Re-evalutation: 03/14/17 19:26 Presentation of a headache that appears to be most consistent with tension versus migrainous type headache. Headache was not maximal in onset, patient has no focal neurologic deficits, no nuchal rigidity, vital signs within normal limits, no papilledema, and patient is overall well in appearance. Based on clinical history and examination I do not suspect an acute subarachnoid hemorrhage, dural venous sinus thrombosis, acute meningitis, or intercranial mass. Given my low clinical suspicion for any acute life-threatening etiology, I do not feel advanced neuro imaging or laboratory testing is indicated at this time. Will proceed with headache cocktail and reassess. 03/14/17 20:05 Patient's had complete resolution of the headache. Feeling much improved. At this time will discharge with return precautions and follow-up recommendations. Verbal discharge instructions given a the bedside and opportunity for questions given. Medication warnings reviewed. Patient is in agreement with this plan and has verbalized understanding of return precautions and the need for primary care follow-up in the next 24-72 hours. - Vital Signs Vital signs: Temp Pulse Resp BP Pulse Ox 97.8 F 90 16 120/82 100 03/14/17 20:15 03/14/17 20:15 03/14/17 20:15 03/14/17 20:15 03/14/17 20:15 Discharge - Discharge Clinical Impression: Migraine headache Qualifiers: Migraine type: other Status migrainosus presence: with status migrainosus Intractability: not intractable Qualified Code(s): G43.801 - Other migraine, not intractable, with status migrainosus Condition: Good Disposition: HOME, SELF-CARE Additional Instructions: You were seen today for a migraine headache. Please follow-up with your primary care doctor regarding today's ED visit. Return to emergency department immediately if you develop a headache that gets to its maximum severity within 20 minutes of onset, you pass out, you develop weakness, numbness, changes in your vision, become unable to keep any fluids down for more than 12 hours, or develop a fever greater than 100.4 degrees Fahrenheit.
[2017-03-14] MEDS ORDERED: DIPHENHYDRAMINE HCL 50 MG/ML VIAL IV ONE (20:05)
[2017-03-14 20:27] VITALS: BP 120/82
== END 2017-03-14 20:15 | disposition home or self-care (01) ==
LOC: ER 18:35
DX: G43.901 Migraine, unspecified, not intractable, with status migrainosus (principal); H53.149 Visual discomfort, unspecified; J45.909 Unspecified asthma, uncomplicated; Z88.1 Allergy status to other antibiotic agents
CPT/HCPCS: 99283; 96361; 96374; 96375; J1200; J1885; J0780; J7030; J1100

== ENCOUNTER 2017-06-08 19:45 | Emergency (ER) | payer OTHER ==
--- NOTE | 2017-06-08 21:14 | RADIOLOGY REPORT (SQ) ---
EXAM DESCRIPTION: SHOULDER RIGHT 2 OR MORE VIEWS COMPLETED DATE/TIME: 06/08/2017 9:04 pm REASON FOR STUDY: possibly dislocated COMPARISON: 12/19/2016. NUMBER OF VIEWS: Two views. TECHNIQUE: Frontal and lateral images acquired of the right shoulder. LIMITATIONS: None. FINDINGS: MINERALIZATION: Normal. BONES: No acute fracture or dislocation. Hardware in the glenoid. No worrisome bone lesions. JOINTS: No dislocation. VISUALIZED LUNGS AND RIBS: No pneumothorax. No rib fracture. SOFT TISSUES: No radiopaque foreign body. OTHER: No other significant finding. IMPRESSION: STABLE HARDWARE. NO ACUTE FINDINGS. TECHNICAL DOCUMENTATION: JOB ID: [id number] [employer]- All Rights Reserved
[2017-06-08] MEDS ORDERED: HYDROMORPHONE HCL INJ/PF 2 MG/ML AMPULE IM ONE (23:29)
[2017-06-08] MEDS ORDERED: ONDANSETRON 4 MG TAB.RAPDIS PO ONE (23:29)
--- NOTE | 2017-06-08 23:31 | ER Document Report ---
ED Medical Screen (RME) - General Chief Complaint: Shoulder Injury Stated Complaint: SHOULDER PAIN Time Seen by Provider: 06/08/17 23:23 Notes: Patient is a 31-year-old female who comes emergency department for chief complaint of possible right shoulder dislocation. She states that she stretched out her arm to catch her wall to get her balance and she felt like she dislocated her shoulder at that time. She reports pain in her shoulder. She has had shoulder dislocations every 2-3 months, multiple surgeries on her shoulder, pending referral to [facility] for this. She did not eat anything for more than 8 hours. TRAVEL OUTSIDE OF THE [place] IN LAST 30 DAYS: No - Related Data Allergies/Adverse Reactions: cefaclor [From Ceclor] Allergy (Mild, Verified 06/08/17 23:24) Generalized rash Past Medical History - Social History Chew tobacco use (# tins/day): No Frequency of alcohol use: Social Drug Abuse: None - Past Medical History Cardiac Medical History: Denies: Hx Coronary Artery Disease, Hx Heart Attack, Hx Hypertension Pulmonary Medical History: Reports: Hx Asthma - LAST ASTHMA ATTACK ABOUT 5 YEARS AGO Denies: Hx Bronchitis, Hx COPD, Hx Pneumonia Neurological Medical History: Reports: Hx Migraine. Denies: Hx Cerebrovascular Accident, Hx Seizures Renal/ Medical History: Denies: Hx Peritoneal Dialysis Musculoskeltal Medical History: Denies Hx Arthritis Past Surgical History: Denies: Hx Hysterectomy - Immunizations Hx Diphtheria, Pertussis, Tetanus Vaccination: Yes Physical Exam - Vital signs Vitals: Temp Pulse Resp BP Pulse Ox 98.5 F 102 H 20 121/91 H 99 06/08/17 20:48 06/08/17 20:48 06/08/17 20:48 06/08/17 20:48 06/08/17 20:48 - Extremities General upper extremity: Other - Tender with palpation to the right shoulder generally and over the clavicle. Multiple postsurgical scars. Patient reluctant to move the shoulder at all and will not attempt range of motion forming. Normal distal neurovascular exam. Course - Vital Signs Vital signs: Temp Pulse Resp BP Pulse Ox 98.2 F 94 18 128/107 H 99 06/08/17 23:23 06/08/17 23:23 06/08/17 23:23 06/08/17 23:23 06/08/17 23:23
--- NOTE | 2017-06-09 01:01 | RADIOLOGY REPORT (SQ) ---
EXAM DESCRIPTION: CT of the right shoulder without contrast. CLINICAL HISTORY: evaluate shoulder, can't move COMPARISON: None Available. TECHNIQUE: Axial CT images of the right shoulder obtained without contrast. FINDINGS: Right shoulder: 2 fixation screws of the right glenoid. The head of the more superior screw does not appear to be within the ossific fragment. There is lucency surrounding the more inferior screw. The anterior inferior glenoid fracture fragment is not well apposed to the main body of the glenoid. No evidence of hardware fracture. Normal osseous mineralization. No acute fracture or dislocation. Visualized right lung is clear. No pneumothorax. Right clavicle is intact. No fracture of the visualized right ribs. DLP: 230.08 mGy-cm IMPRESSION: 1. No acute fracture or dislocation of the right shoulder. 2. 2 fixation screws of the glenoid. The head of the more superior glenoid screw is not well-seated within the anterior inferior fracture fragment. The screw threads of the inferior screw have adjacent lucency and the anterior inferior fracture fragment is not well apposed to the body of the glenoid despite screw fixation. Loosening of these components is a possibility however confirmation cannot be confirmed without comparison CT. This exam was performed according to our departmental dose-optimization program, which includes automated exposure control, adjustment of the mA and/or kV according to patient size and/or use of iterative reconstruction technique.
--- NOTE | 2017-06-09 01:18 | ER Document Report ---
ED Extremity Problem, Upper - General Chief Complaint: Shoulder Injury Stated Complaint: SHOULDER PAIN Time Seen by Provider: 06/08/17 23:23 Notes: Patient is a 31-year-old female who comes emergency department for chief complaint of possible right shoulder dislocation. She states that she stretched out her arm to catch her wall to get her balance and she felt like she dislocated her shoulder at that time. She reports pain in her shoulder. She has had shoulder dislocations every 2-3 months, multiple surgeries on her shoulder, pending referral to [place] for this. She did not eat anything for more than 8 hours. TRAVEL OUTSIDE OF THE [place] IN LAST 30 DAYS: No - Related Data Allergies/Adverse Reactions: cefaclor [From [facility]] Allergy (Mild, Verified 06/08/17 23:24) Generalized rash Past Medical History - General Information source: Patient - Social History Smoking Status: Current Every Day Smoker Chew tobacco use (# tins/day): No Frequency of alcohol use: Social Drug Abuse: None Lives with: Family Family History: Reviewed & Not Pertinent Patient has suicidal ideation: No Patient has homicidal ideation: No - Past Medical History Cardiac Medical History: Denies: Hx Coronary Artery Disease, Hx Heart Attack, Hx Hypertension Pulmonary Medical History: Reports: Hx Asthma - LAST ASTHMA ATTACK ABOUT 5 YEARS AGO Denies: Hx Bronchitis, Hx COPD, Hx Pneumonia Neurological Medical History: Reports: Hx Migraine. Denies: Hx Cerebrovascular Accident, Hx Seizures Renal/ Medical History: Denies: Hx Peritoneal Dialysis Musculoskeltal Medical History: Denies Hx Arthritis Past Surgical History: Reports: Hx Orthopedic Surgery - right shoulder x4 right and left hip , right ankle. Denies: Hx Hysterectomy - Immunizations Hx Diphtheria, Pertussis, Tetanus Vaccination: Yes Review of Systems - Review of Systems Constitutional: No symptoms reported EENT: No symptoms reported Cardiovascular: No symptoms reported Respiratory: No symptoms reported Gastrointestinal: No symptoms reported Genitourinary: No symptoms reported Female Genitourinary: No symptoms reported Musculoskeletal: See HPI Skin: No symptoms reported Hematologic/Lymphatic: No symptoms reported Neurological/Psychological: No symptoms reported Physical Exam - Vital signs Vitals: Temp Pulse Resp BP Pulse Ox 98.5 F 102 H 20 121/91 H 99 06/08/17 20:48 06/08/17 20:48 06/08/17 20:48 06/08/17 20:48 06/08/17 20:48 Interpretation: Normal - General General appearance: Alert, Anxious In distress: Mild - HEENT Head: Normocephalic, Atraumatic Eyes: Normal Pupils: PERRL - Respiratory Respiratory status: No respiratory distress Chest status: Nontender Breath sounds: Normal. No: Decreased air movement, Wheezing Chest palpation: Normal - Cardiovascular Rhythm: Regular. No: Tachycardia Heart sounds: Normal auscultation, S1 appreciated, S2 appreciated Murmur: No - Abdominal Inspection: Normal Distension: No distension Bowel sounds: Normal Tenderness: Nontender. No: Tender, Guarding - Back Back: Normal, Nontender. No: Tender - Extremities General upper extremity: Other - Right shoulder tender generally, limited ability to move at all, multiple postsurgical scars, no erythema, no significant swelling. Minimal tenderness with palpation over the clavicle. Normal deputy sheriff bailiff, normal sensation and capillary refill, normal radial pulse. No rigidity of the muscle. General lower extremity: Normal inspection, Nontender, Normal ROM, Normal strength - Neurological Neuro grossly intact: Yes Cognition: Normal Orientation: AAOx4 Yossi Coma Scale Eye Opening: Spontaneous Yossi Coma Scale Verbal: Oriented [place] Coma Scale Motor: Obeys Commands Yossi Coma Scale Total: 15 Speech: Normal Motor strength normal: LUE, RUE, LLE, RLE Sensory: Normal - Psychological Associated symptoms: Normal affect, Normal mood - Skin Skin Temperature: Warm Skin Moisture: Dry Skin Color: Normal Course - Re-evaluation Re-evalutation: After pain medication patient's range of motion slightly improved but still poor. No neurovascular deficits. No evidence of compartment syndrome. X-ray showing no dislocation. Patient concerned, states that she has dislocated it before and it was missed, states she feels like it still might be out and something is wrong with her shoulder. Discussed with Dr. Schaffer, recommends CAT scan to further evaluate. CAT scan showing possible displacement of the hardware with 1 of the screws possibly coming out from its desired location. Discussed with patient. Offered to speak with orthopedics for her, she declined, she requests a copy of her report and disc so she can take it to her [place] orthopedics appointment coming up in the next few days. Provided with some pain medication. Discussed return precautions in detail, patient states understanding and agreement. - Vital Signs Vital signs: Temp Pulse Resp BP Pulse Ox 98.1 F 82 18 118/80 99 06/09/17 01:22 06/09/17 01:22 06/09/17 01:22 06/09/17 01:22 06/09/17 01:22 Discharge - Discharge Clinical Impression: Right shoulder pain Qualifiers: Chronicity: acute Qualified Code(s): M25.511 - Pain in right shoulder Condition: Stable Disposition: HOME, SELF-CARE Additional Instructions: CAT scan does not show dislocation but does so concerned about location and possible movement of your hardware. Please follow-up with your orthopedics this week as planned, bring the disc for comparison to previous imaging. Wear the sling for comfort, take medication only if needed, ice your shoulder 3- 4 times a day for 10-15 minutes. Return the emergency department for any concerning or worsening symptoms including severe swelling or pain. Prescriptions: Morphine Sulfate [Morphine Ir 15 Mg Tablet] 12 mg PO Q4HP PRN #12 tablet PRN Reason:
[2017-06-09 01:23] VITALS: BP 118/80
== END 2017-06-09 01:26 | disposition home or self-care (01) ==
LOC: ER 19:45
DX: M25.511 Pain in right shoulder (principal); W19.XXXA Unspecified fall, initial encounter; F17.200 Nicotine dependence, unspecified, uncomplicated
CPT/HCPCS: 99284; 96372; 73030; 73200; S0119; J1170

== ENCOUNTER → 2017-07-21 | Outpatient (CLI) | payer OTHER ==
--- NOTE | 2017-07-21 09:05 | WOMENS IMAGING REPORT ---
EXAM DESCRIPTION: U/S ABDOMEN LIMITED COMPLETED DATE/TIME: 07/21/2017 8:52 am REASON FOR STUDY: EPIGASTRIC PAIN R10.13 EPIGASTRIC PAIN COMPARISON: None. TECHNIQUE: Dynamic and static grayscale images acquired of the abdomen and recorded on PACS. Additio nal selected color Doppler and spectral images recorded. LIMITATIONS: Habitus and obscuring bowel. FINDINGS: PANCREAS: Not seen. LIVER: Normal size without gross mass. LIVER VASCULATURE: Normal directional flow of the main portal vein and hepatic veins. GALLBLADDER: No stones. Normal wall thickness. No pericholecystic fluid. ULTRASOUND-DETECTED MARIE'S SIGN: Negative. INTRAHEPATIC DUCTS AND COMMON DUCT: CBD and intrahepatic ducts normal caliber. No filling defects. INFERIOR VENA CAVA: Normal flow. AORTA: No aneurysm. RIGHT KIDNEY: Normal size. Normal echogenicity. No solid or suspicious masses. No hydronephrosis. No calcifications. PERITONEAL AND RIGHT PLEURAL SPACE: No ascites or effusions. OTHER: No other significant findings. IMPRESSION: Mildly limited but otherwise negative study. TECHNICAL DOCUMENTATION: JOB ID: [id number] [employer]- All Rights Reserved Reading location - IP/workstation name: [email or web address]
== END ==
LOC: WI 07:26
PROVIDERS: ATTEND Internal Medicine Gastroenterology
DX: R10.13 Epigastric pain (principal)
CPT/HCPCS: 76705

== ENCOUNTER → 2017-12-13 | Day surgery (SDC) | payer OTHER ==
[~2017-12-13] MED LIST changes: -LIDOCAINE 1% INJ-PF (10 MG/ML) 30 ML SDV ONE; +METHYLPREDNISOLONE ACETATE INJ 40 MG/1 ML ML ONE
--- NOTE | 2017-12-13 16:05 | RADIOLOGY REPORT (SQ) ---
EXAM DESCRIPTION: INJECT/ASPIR HIP/SHLDR/KNEE; FLUORO/NEEDLE PLACEMENT COMPLETED DATE/TIME: 12/13/2017 3:48 pm REASON FOR STUDY: LEFT HIP PAIN M25.852 M25.852 OTHER SPECIFIED JOINT DISORDERS, LEFT HIP COMPARISON: None. FLUOROSCOPY TIME: 0.2 minutes. 1 images saved to PACS. LIMITATIONS: None. PROCEDURE: SITE OF INJECTION: Left hip. LOCALIZING CONTRAST TYPE AND DOSE: 1 mL Isovue-300. MEDICATION TYPE AND DOSE: 80 mg Depo-Medrol and 5 mL Sensorcaine. Using local anesthesia and sterile technique with fluoroscopic guidance, the needle was advanced into the joint. Iodinated contrast was injected to verify intraarticular placement. This was followed by therapeutic injection of the indicated medications. The needle was removed. There were no immediat e complications. Preprocedure pain level: 3/5. Postprocedure pain level: 2/5. IMPRESSION: THERAPEUTIC INJECTION OF THE LEFT HIP JOINT ABOVE. COMMENT: Patient medication list reviewed: Yes- Quality ID# [id number]:Eligible professional attests to doc umenting in the medical record they obtained, updated, or reviewed the patient's current medications. . Quality ID 145: Final reports for procedures using fluoroscopy that document radiation exposure allen ajith, or exposure time and number of fluorographic images (if radiation exposure indices are not avail able) TECHNICAL DOCUMENTATION: JOB ID: [id number] [employer]- All Rights Reserved Reading location - IP/workstation name: [email or web address]
--- NOTE | 2017-12-13 16:05 | RADIOLOGY REPORT (SQ) ---
EXAM DESCRIPTION: INJECT/ASPIR HIP/SHLDR/KNEE; FLUORO/NEEDLE PLACEMENT COMPLETED DATE/TIME: 12/13/2017 3:48 pm REASON FOR STUDY: LEFT HIP PAIN M25.852 M25.852 OTHER SPECIFIED JOINT DISORDERS, LEFT HIP COMPARISON: None. FLUOROSCOPY TIME: 0.2 minutes. 1 images saved to PACS. LIMITATIONS: None. PROCEDURE: SITE OF INJECTION: Left hip. LOCALIZING CONTRAST TYPE AND DOSE: 1 mL Isovue-300. MEDICATION TYPE AND DOSE: 80 mg Depo-Medrol and 5 mL Sensorcaine. Using local anesthesia and sterile technique with fluoroscopic guidance, the needle was advanced into the joint. Iodinated contrast was injected to verify intraarticular placement. This was followed by therapeutic injection of the indicated medications. The needle was removed. There were no immediat e complications. Preprocedure pain level: 3/5. Postprocedure pain level: 2/5. IMPRESSION: THERAPEUTIC INJECTION OF THE LEFT HIP JOINT ABOVE. COMMENT: Patient medication list reviewed: Yes- Quality ID# [id number]:Eligible professional attests to doc umenting in the medical record they obtained, updated, or reviewed the patient's current medications. . Quality ID 145: Final reports for procedures using fluoroscopy that document radiation exposure allen ajith, or exposure time and number of fluorographic images (if radiation exposure indices are not avail able) TECHNICAL DOCUMENTATION: JOB ID: [id number] [employer]- All Rights Reserved Reading location - IP/workstation name: [email or web address]
== END ==
LOC: RAD 15:08
PROVIDERS: ATTEND Orthopaedic Surgery Sports Medicine
DX: M25.852 Other specified joint disorders, left hip (principal)
CPT/HCPCS: 20610; 77002; J1020

== ENCOUNTER → 2018-03-08 | Outpatient (CLI) | payer OTHER ==
--- NOTE | 2018-03-09 13:28 | RADIOLOGY REPORT (SQ) ---
EXAM DESCRIPTION: MRI RT UPPER JOINT WITHOUT COMPLETED DATE/TIME: 03/08/2018 4:34 pm REASON FOR STUDY: M24.411 RECURRENT DISLOCATION, RIGHT SHOULDER M24.411 RECURRENT DISLOCATION, RIGH T SHOULDER COMPARISON: None. TECHNIQUE: Right shoulder images acquired and stored on PACS. Multiplanar imaging to include fat sen sitive sequences such as T1, water sensitive sequences such as FST2/STIR, cartilage sensitive sequenc es such as FSPD/gradient-echo sequences. LIMITATIONS: Motion. Susceptibility artifact. FINDINGS: Extensive artifact associated with suture anchors in the humeral head and glenoid status p ost capsulorrhaphy, subscapularis repair, labral repair and biceps tenodesis. There is fatty infiltr ation of the subscapularis muscle. Subscapularis insertion intact as visualized. Tendinosis and per itendinitis infraspinatus musculotendinous junction. Mild tendinosis in the supraspinatus. Labral e valuation very limited. IMPRESSION: Extensive postoperative changes. No obvious recurrent tear. TECHNICAL DOCUMENTATION: JOB ID: [id number] [employer] All Rights Reserved Reading location - IP/workstation name: [email or web address]
== END ==
LOC: RAD 17:22
PROVIDERS: ATTEND Orthopaedic Surgery
DX: M24.411 Recurrent dislocation, right shoulder (principal)

== ENCOUNTER → 2018-03-15 | Outpatient (CLI) | payer OTHER ==
--- NOTE | 2018-03-15 15:39 | RADIOLOGY REPORT (SQ) ---
EXAM DESCRIPTION: CT RT UPPER EXTREMITY WITHOUT COMPLETED DATE/TIME: 03/15/2018 1:45 pm REASON FOR STUDY: M24.411 RECURRENT DISLOCATION, RIGHT SHOULDER M24.411 RECURRENT DISLOCATION, RIGH T SHOULDER COMPARISON: Radiographs 06/08/2017 TECHNIQUE: Axial imaging performed through the rightshoulder with reformatted oblique coronal and ob lique sagittal imaging windowed for bone and soft tissues. All CT scanners at this facility use dose modulation, iterative reconstruction, and/or weight based d osing when appropriate to reduce radiation dose to as low as reasonably achievable (ALARA). [facility]: Dose Right [facility]: CareDose [facility]: Dose Right [facility]: Teradose 4D [facility]: Smart Traity RADIATION DOSE: CT Rad equipment meets quality standard of care and radiation dose reduction techniq ues were employed. CTDIvol: 4.9 mGy. DLP: 107 mGy-cm. mGy. LIMITATIONS: None. FINDINGS: Axial, coronal, and sagittal images were obtained. 3D reformatted images were obtained. There are surgical changes in the humeral head and in the glenoid. The humeral head sits slightly hi gh in the glenoid. The subacromial space is slightly narrowed. There is no acute fracture. No soft tissue abnormality is present. The clavicle and acromioclavicular joint are normal. IMPRESSION: Surgical changes. There is mild narrowing of the subacromial space raising possibility of some degree of chronic rotator cuff disease. No acute abnormality. TECHNICAL DOCUMENTATION: JOB ID: [id number] Quality ID # [id number]: Final reports with documentation of one or more dose reduction techniques (e.g., Au tomated exposure control, adjustment of the mA and/or kV according to patient size, use of iterative reconstruction technique) 2010 [employer]- All Rights Reserved Reading location - IP/workstation name: [email or web address]
== END ==
LOC: RAD 15:31
PROVIDERS: ATTEND Orthopaedic Surgery
DX: M24.411 Recurrent dislocation, right shoulder (principal)